=== PATIENT | male | born 2005 | race African-American/Black ===

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

== ENCOUNTER 2024-07-06 19:40 | Emergency (ER) | payer SELFPAY ==
[2024-07-06] MEDS: EPINEPHrine 1 MG/1 ML Amp IM ONE (19:49)
[2024-07-06] MEDS: Sodium Chloride 0.9% 1,000 ML IV STA (19:53)
[2024-07-06] MEDS: Famotidine 20 MG/2 ML SDV IVPUSH ONE (19:54)
[2024-07-06] MEDS: methylPREDNISolone Sodium Succinate 125 MG/2 ML SDV IVPUSH ONE (19:54)
[2024-07-06] MEDS: EPINEPHrine 1 MG/1 ML Amp ONE (19:58)
== END 2024-07-06 21:51 | disposition home or self-care (01) ==
LOC: MW.ED 19:40
DX: T78.05XA Anaphylactic reaction due to tree nuts and seeds, initial encounter (principal); Z75.8 Other problems related to medical facilities and other health care; Z91.018 Allergy to other foods; Z79.899 Other long term (current) drug therapy
CPT/HCPCS: 96361; 96372; 96374; 96375; 99284; J0171; J2919; J7030